=== PATIENT | female | born 1955 | race Caucasian/White ===

== ENCOUNTER 2017-02-07 16:01 | Inpatient (IN) | payer MEDICARE, OTHER ==
[~2017-02-07] VITALS: Ht 165.1 cm; Wt 61.8 kg
[2017-02-07 16:45] LABS: HEMOGLOBIN 15.4 gm/dl (12.3-15.3); RED BLOOD COUNT 4.93 M/UL (4.00-5.10); WHITE BLOOD COUNT 6.2 K/UL (4.5-11.0)
[2017-02-07 17:07] LABS: BUN/CREATININE RATIO 24 (0-10)
[2017-02-08] MEDS ORDERED: ZOCOR20 MG PO (01:06)
[2017-02-08] MEDS ORDERED: LISINOPRIL40 MG PO (01:06)
[2017-02-08] MEDS ORDERED: HYDROCHLOROTHIA25 MG PO (01:07)
[2017-02-08] MEDS ORDERED: COREG 3.125M3.125 MG PO (01:07)
[2017-02-08] MEDS ORDERED: PANTOPRAZOLE SO40 MG PO (01:07)
[2017-02-09 05:55] LABS: HEMOGLOBIN 14.8 gm/dl (12.3-15.3); RED BLOOD COUNT 4.74 M/UL (4.00-5.10)
[2017-02-09 05:59] LABS: WHITE BLOOD COUNT 10.2 K/UL (4.5-11.0)
[2017-02-09 06:14] LABS: BUN/CREATININE RATIO 29 (0-10)
[2017-02-09] MEDS ORDERED: ALBUTEROL0.63 MG/3 INH (18:00)
[2017-02-09] MEDS ORDERED: PREDNISONE10 MG PO (18:01)
[2017-02-09] MEDS ORDERED: ALBUTEROL2.5 MG/3 M NEB (18:50)
[2017-07-18] MEDS ORDERED: FOLIC ACID 1 MG1 MG PO (22:04)
[2017-07-22] MEDS ORDERED: FLAGYL500 MG PO (18:01)
== END 2017-02-09 20:10 | disposition home or self-care (01) | DRG 190 ==
LOC: ER1 16:01 → ZEROF 20:55 → M/S 23:30
PROVIDERS: Emergency Medicine; Internal Medicine; ADMIT Internal Medicine
DX: J44.1 Chronic obstructive pulmonary disease with (acute) exacerbation (principal); J18.9 Pneumonia, unspecified organism; J44.0 Chronic obstructive pulmonary disease with (acute) lower respiratory infection; J20.9 Acute bronchitis, unspecified; R91.1 Solitary pulmonary nodule; R06.00 Dyspnea, unspecified; E87.6 Hypokalemia; I10 Essential (primary) hypertension; E78.5 Hyperlipidemia, unspecified; F17.210 Nicotine dependence, cigarettes, uncomplicated; R53.1 Weakness; Z88.2 Allergy status to sulfonamides; Z88.5 Allergy status to narcotic agent; Z88.8 Allergy status to other drugs, medicaments and biological substances; Z79.899 Other long term (current) drug therapy; Z80.41 Family history of malignant neoplasm of ovary; Z80.9 Family history of malignant neoplasm, unspecified
CPT/HCPCS: 36415; 71010; 80048; 80053; 82550; 82553; 83735; 83874; 83880; 84100; 84132; 84439; 84443; 84480; 84484; 85025; 85027; 93005; 94640; 94664; 96374; 96375; 96376; 99285; J1650; J1885; J1956; J2270; J3480; J7030; J7050; Q9963

== ENCOUNTER → 2017-03-02 | Outpatient (CLI) | payer MEDICARE, SELFPAY ==
[~2017-03-02] MED LIST: ALBUTEROL0.63 MG/3 INH; ALBUTEROL2.5 MG/3 M NEB; COREG 3.125M3.125 MG PO; FLAGYL500 MG PO; FOLIC ACID 1 MG1 MG PO; HYDROCHLOROTHIA25 MG PO; LISINOPRIL40 MG PO; PANTOPRAZOLE SO40 MG PO; PREDNISONE10 MG PO; ZOCOR20 MG PO
== END ==
LOC: HEART 5 13:37
DX: R06.02 Shortness of breath (principal)
CPT/HCPCS: 94010

== ENCOUNTER → 2017-03-18 | Outpatient (CLI) | payer MEDICARE, SELFPAY | LOC: HEART CORB 02-11 12:00 | DX: R07.2 Precordial pain (principal); R06.02 Shortness of breath; I10 Essential (primary) hypertension | CPT/HCPCS: 78452; 93017; 93306; A9502; J2785 ==

== ENCOUNTER → 2017-04-06 | Outpatient (CLI) | payer MEDICARE, OTHER | LOC: KOH-I 08:20 | DX: R91.1 Solitary pulmonary nodule (principal); R94.2 Abnormal results of pulmonary function studies | CPT/HCPCS: 71250 ==

== ENCOUNTER → 2021-07-12 | Outpatient (CLI) | payer OTHER | LOC: CT 09:34 | DX: C34.11 Malignant neoplasm of upper lobe, right bronchus or lung (principal); C77.1 Secondary and unspecified malignant neoplasm of intrathoracic lymph nodes | CPT/HCPCS: 71260; Q9967 ==

== ENCOUNTER → 2022-07-14 | Outpatient (CLI) | payer OTHER | LOC: CT 12:50 | DX: C34.11 Malignant neoplasm of upper lobe, right bronchus or lung (principal); C77.1 Secondary and unspecified malignant neoplasm of intrathoracic lymph nodes; F17.211 Nicotine dependence, cigarettes, in remission; R91.1 Solitary pulmonary nodule | CPT/HCPCS: 71250 ==